=== PATIENT | female | born 1945 | race Caucasian/White ===

== ENCOUNTER 2019-12-08 22:36 | Inpatient (IN) ==
[2019-12-08] MEDS ORDERED: *HR* OxyCODONE Immed Rel 5 MG TABLET PO STA (22:55)
[2019-12-09 01:46] LABS: Basophils % 0.3 %; Eosinophils # 0.2 K/mcL (0.0-0.6); Eosinophils % 1.2 %; Hematocrit 39.7 % (35.3-44.9); Hemoglobin 13.2 g/dL (11.5-15.4); Immature Granulocytes % 0.5 % (0-4); Lymphocytes # 3.7 K/mcL (0.6-4.6); Lymphocytes % 23.8 %; Mean Corpuscular HGB Conc 33.2 g/dL (31.6-35.5); Mean Corpuscular Hemoglobin 30.1 pg (28.0-33.3); Mean Corpuscular Volume 90.4 fL (83.0-100.0); Mean Platelet Volume 10.4 fL (9.4-12.4); Monocytes % 6.3 %; Neutrophils # 10.4 K/mcL (1.6-8.9); Platelet Count 249 K/mcL (140-400); Red Blood Count 4.39 M/mcL (3.82-4.97); Red Cell Distribution Width 12.9 % (11.5-14.5); Segmented Neutrophils % 67.9 %; White Blood Count 15.4 K/mcL (4.3-11.1)
[2019-12-09 01:56] LABS: Prothrombin Time 11.4 Seconds (9.4-12.1)
[2019-12-09 01:59] LABS: Activated Partial Thrombo Time 27.7 Seconds (26.0-36.0)
[2019-12-09 02:01] LABS: Alanine Aminotransferase 19 Units/L (7-52); Albumin 4.3 g/dL (3.5-5.7); Albumin/Globulin Ratio 1.7 (1.1-2.2); Alkaline Phosphatase 65 Units/L (34-104); Aspartate Amino Transferase 21 Units/L (13-39); BUN/Creatinine Ratio 23 (6-26); Bilirubin,Direct 0.1 mg/dL (0.0-0.2); Bilirubin,Indirect 0.3 mg/dL (0.0-1.0); Bilirubin,Total 0.4 mg/dL (0.3-1.0); Blood Urea Nitrogen 19 mg/dL (8-23); Carbon Dioxide 22 mEq/L (23-29); Chloride 104 mEq/L (98-107); Globulin 2.6 g/dL (2.4-3.5); Glucose 142 mg/dL (70-105); Osmolality,Calculated 291 (280-300); Potassium 3.8 mEq/L (3.5-5.1); Sodium 138 mEq/L (136-145); Total Protein 6.9 g/dL (6.4-8.9); eGFR For African Americans > 60 (> 60); eGFR For Non-African Americans > 60 (> 60)
[2019-12-09] MEDS ORDERED: Naloxone 0.4 MG/ML INJ IVP PRN (02:44)
[2019-12-09] MEDS ORDERED: Ondansetron 4 MG/2 ML VIAL IVP PRN (02:44)
[2019-12-09] MEDS ORDERED: Acetaminophen 325 MG TABLET PO PRN (02:44)
[2019-12-09] MEDS ORDERED: 0.9 % Sodium Chloride 1,000 ML IVC SCH (02:45)
[2019-12-09 03:20] LABS: Troponin I < 0.03 ng/mL (< 0.04)
[2019-12-09 03:24] LABS: Adenovirus Not Detected (Not Detect); Bordetella Pertussis Not Detected (Not Detect); Chlamydophila pneumoniae Not Detected (Not Detect); Coronavirus 229E Not Detected (Not Detect); Coronavirus HKU1 Not Detected (Not Detect); Coronavirus NL63 Not Detected (Not Detect); Coronavirus OC43 Not Detected (Not Detect); Human Metapneumovirus Not Detected (Not Detect); Human Rhinovirus/Enterovirus Not Detected (Not Detect); Influenza A Subtype 2009 H1 Not Detected (Not Detect); Influenza B Not Detected (Not Detect); Mycoplasma pneumoniae Not Detected (Not Detect); Parainfluenza Virus 1 Not Detected (Not Detect); Parainfluenza Virus 2 Not Detected (Not Detect); Parainfluenza Virus 3 Not Detected (Not Detect); Parainfluenza Virus 4 Not Detected (Not Detect); Respiratory Syncytial Virus Not Detected (Not Detect); SARS-CoV-2 Not Detected (Not Detect)
[2019-12-09] MEDS ORDERED: Nitroglycerin 0.4 MG TAB.SUBL SL PRN (03:34)
[2019-12-09 03:55] LABS: Bilirubin,Urine Negative (Negative); Blood,Urine Negative (Negative); Clarity,Urine Clear (Clear); Color,Urine Colorless (Yellow); Glucose,Urine (UA) Normal (Normal); Ketones,Urine Negative (Negative); Leukocyte Esterase,Urine Trace (Negative); Mucus,Urine Few per lpf (None-Few); Nitrite,Urine Negative (Negative); Protein,Urine Negative (Neg-Trace); RBC,Urine 0-3 per hpf (0-3); Specific Gravity,Urine 1.014 (1.010-1.025); Squamous Epithelial Cell,Urine Few per hpf (None-Few); Urobilinogen,Urine Normal (Normal)
[2019-12-09] MEDS: *HR* Heparin 5,000 UNIT/ML VIAL SQ SCH ×2 (06:21→18:39)
[2019-12-09 06:25] LABS: Hematocrit 35.8 % (35.3-44.9); Hemoglobin 12.2 g/dL (11.5-15.4); Mean Corpuscular HGB Conc 34.1 g/dL (31.6-35.5); Mean Corpuscular Hemoglobin 31.3 pg (28.0-33.3); Mean Corpuscular Volume 91.8 fL (83.0-100.0); Mean Platelet Volume 9.7 fL (9.4-12.4); Platelet Count 199 K/mcL (140-400); Red Cell Distribution Width 12.9 % (11.5-14.5); White Blood Count 8.7 K/mcL (4.3-11.1)
[2019-12-09 06:43] LABS: Magnesium 1.8 mg/dL (1.6-2.6); Phosphorous 3.4 mg/dL (2.7-4.5)
[2019-12-09] MEDS: amLODIPine 5 MG TABLET PO SCH (07:44)
[2019-12-09] MEDS: Isosorbide MONOnitrate (24 HR) 30 MG TAB.ER.24H PO SCH (15:00)
[2019-12-09] MEDS: Aspirin 81 MG TAB.CHEW PO SCH (18:38)
[2019-12-10] MEDS: *HR* Heparin 5,000 UNIT/ML VIAL SQ SCH (06:02)
[2019-12-10 10:38] LABS: Basophils % 0.5 %; Eosinophils # 0.5 K/mcL (0.0-0.6); Eosinophils % 5.6 %; Hematocrit 34.4 % (35.3-44.9); Hemoglobin 11.5 g/dL (11.5-15.4); Immature Granulocytes % 0.2 % (0-4); Lymphocytes # 3.4 K/mcL (0.6-4.6); Lymphocytes % 42.3 %; Mean Corpuscular HGB Conc 33.4 g/dL (31.6-35.5); Mean Corpuscular Hemoglobin 31.4 pg (28.0-33.3); Mean Platelet Volume 10.1 fL (9.4-12.4); Monocytes # 0.6 K/mcL (0.0-1.3); Monocytes % 7.9 %; Neutrophils # 3.5 K/mcL (1.6-8.9); Platelet Count 201 K/mcL (140-400); Red Blood Count 3.66 M/mcL (3.82-4.97); Red Cell Distribution Width 12.8 % (11.5-14.5); Segmented Neutrophils % 43.5 %
[2019-12-10] MEDS: amLODIPine 5 MG TABLET PO SCH (10:53)
[2019-12-10] MEDS: Aspirin 81 MG TAB.CHEW PO SCH (10:53)
[2019-12-10] MEDS: Isosorbide MONOnitrate (24 HR) 30 MG TAB.ER.24H PO SCH (10:53)
[2019-12-10 10:59] LABS: BUN/Creatinine Ratio 25 (6-26); Blood Urea Nitrogen 18 mg/dL (8-23); Carbon Dioxide 25 mEq/L (23-29); Chloride 104 mEq/L (98-107); Glucose 132 mg/dL (70-105); Osmolality,Calculated 288 (280-300); Potassium 3.6 mEq/L (3.5-5.1); Sodium 137 mEq/L (136-145); eGFR For African Americans > 60 (> 60); eGFR For Non-African Americans > 60 (> 60)
[2019-12-10 16:29] VITALS: BP 116/60
== END 2019-12-10 18:17 | disposition home or self-care (01) | DRG 552 ==
LOC: 3NENU 22:36 → EMEROOARM 22:36 → 3NENU 12-09 04:38
PROVIDERS: ADMIT Family Medicine; ATTEND Family Medicine

== ENCOUNTER 2020-01-05 06:40 | Inpatient (IN) ==
[~2020-01-05 06:40] MED LIST: Dextrose 50 % in Water (Vial) 30 ML, Sodium Bicarbonate 20 MEQ, Lidocaine 1% 5 ML, Insu... TH ONE; Dextrose 50 % in Water (Vial) 30 ML, Sodium Bicarbonate 20 MEQ, Potassium Chloride 15 M... TH ONE; Heparin 15,000 UNIT in 0.9 % Sodium Chloride 500 ML IV ONE; Insulin Human Regular 100 UNIT in 0.9 % Sodium Chloride 100 ML IV PRN; Norepinephrine 4 MG in 0.9 % Sodium Chloride 250 ML IVC PRN
[2020-01-05] MEDS ORDERED: CeFAZolin Syr 2,000MG/20 ML 2,000 MG/20 ML SYRINGE IVPB ONE (06:56)
[2020-01-05] MEDS ORDERED: Aspirin 81 MG TAB.CHEW PO STA (06:56)
[2020-01-05] MEDS ORDERED: *HR* FentaNYL (PF) 1,000 MCG/20 ML VIAL ONE (06:57)
[2020-01-05] MEDS ORDERED: *HR* Propofol 200 MG/20 ML VIAL IVP ONE (06:57)
[2020-01-05] MEDS ORDERED: *HR* Midazolam HCl 5 MG/5 ML VIAL IVP ONE (06:57)
[2020-01-05] MEDS ORDERED: *HR* PHENYLEPHRINE 1,000 MCG/10 ML SYRINGE IVP ONE (07:00)
[2020-01-05] MEDS ORDERED: Dexamethasone 4 MG/ML VIAL ONE (07:00)
[2020-01-05] MEDS ORDERED: *HR* Rocuronium Bromide 50 MG/5 ML VIAL ONE ×2 (07:00→09:44)
[2020-01-05] MEDS ORDERED: Tranexamic Acid 1,000 MG/10 ML VIAL ONE (07:01)
[2020-01-05] MEDS ORDERED: *HR* Magnesium Sulfate 1 GM/2 ML VIAL ONE (07:01)
[2020-01-05] MEDS ORDERED: Famotidine 20 MG/2 ML VIAL ONE (07:01)
[2020-01-05] MEDS ORDERED: Lidocaine 2% Syringe 100 MG/5 ML ONE (07:14)
[2020-01-05] MEDS: Chlorhexidine Rinse 15 ML MOUTHWASH MM SCH ×2 (07:40→19:32)
[2020-01-05] MEDS ORDERED: Papaverine 60 MG/2 ML VIAL IVP ONE (07:57)
[2020-01-05 08:33] LABS: ABG Base Excess -1 mEq/L (-2 to 3); ABG Chloride 108 mEq/L (98-107); ABG Glucose 92 mg/dL (60-95); ABG HCO3 25 mEq/L (21-27); ABG Ionized Calcium 1.19 mmol/L (1.15-1.35); ABG Oxygen Saturation 100 % (95-98); ABG PCO2 48 mmHg (35-45); ABG PH 7.33 pH Units (7.32-7.45); ABG PO2 452 mmHg (85-104); ABG TCO2 27 mEq/L (20-26)
[2020-01-05 09:49] LABS: ABG Base Excess -2 mEq/L (-2 to 3); ABG Chloride 108 mEq/L (98-107); ABG Glucose 109 mg/dL (60-95); ABG HCO3 24 mEq/L (21-27); ABG Ionized Calcium 1.14 mmol/L (1.15-1.35); ABG Oxygen Saturation 100 % (95-98); ABG PCO2 40 mmHg (35-45); ABG PH 7.38 pH Units (7.32-7.45); ABG PO2 197 mmHg (85-104); ABG TCO2 25 mEq/L (20-26)
[2020-01-05] MEDS ORDERED: Protamine Sulfate 250 MG/25 ML VIAL IVP ONE (09:54)
[2020-01-05 10:27] LABS: ABG Base Excess -2 mEq/L (-2 to 3); ABG Chloride 101 mEq/L (98-107); ABG Glucose 205 mg/dL (60-95); ABG HCO3 22 mEq/L (21-27); ABG Ionized Calcium 0.89 mmol/L (1.15-1.35); ABG PCO2 34 mmHg (35-45); ABG PH 7.43 pH Units (7.32-7.45); ABG PO2 > 630 mmHg (85-104); ABG TCO2 23 mEq/L (20-26)
[2020-01-05 10:54] LABS: ABG Base Excess 0 mEq/L (-2 to 3); ABG Chloride 101 mEq/L (98-107); ABG Glucose 212 mg/dL (60-95); ABG HCO3 24 mEq/L (21-27); ABG Ionized Calcium 0.96 mmol/L (1.15-1.35); ABG Oxygen Saturation 100 % (95-98); ABG PCO2 34 mmHg (35-45); ABG PH 7.46 pH Units (7.32-7.45); ABG PO2 630 mmHg (85-104); ABG TCO2 25 mEq/L (20-26)
[2020-01-05] MEDS ORDERED: Protamine Sulfate 50 MG/5 ML VIAL IVP ONE (12:03)
[2020-01-05 12:05] LABS: ABG Base Excess -1 mEq/L (-2 to 3); ABG Chloride 103 mEq/L (98-107); ABG Glucose 177 mg/dL (60-95); ABG HCO3 24 mEq/L (21-27); ABG Ionized Calcium 0.96 mmol/L (1.15-1.35); ABG Oxygen Saturation 100 % (95-98); ABG PCO2 39 mmHg (35-45); ABG PO2 592 mmHg (85-104); ABG TCO2 25 mEq/L (20-26)
[2020-01-05 12:05] LABS: ABG Base Excess -2 mEq/L (-2 to 3); ABG Chloride 104 mEq/L (98-107); ABG Glucose 136 mg/dL (60-95); ABG HCO3 24 mEq/L (21-27); ABG Ionized Calcium 1.23 mmol/L (1.15-1.35); ABG Oxygen Saturation 100 % (95-98); ABG PCO2 42 mmHg (35-45); ABG PH 7.36 pH Units (7.32-7.45); ABG PO2 566 mmHg (85-104); ABG TCO2 25 mEq/L (20-26)
[2020-01-05 12:06] LABS: ABG Base Excess -4 mEq/L (-2 to 3); ABG Chloride 112 mEq/L (98-107); ABG Glucose 104 mg/dL (60-95); ABG HCO3 22 mEq/L (21-27); ABG Ionized Calcium 1.42 mmol/L (1.15-1.35); ABG Oxygen Saturation 99 % (95-98); ABG PCO2 40 mmHg (35-45); ABG PH 7.35 pH Units (7.32-7.45); ABG PO2 148 mmHg (85-104); ABG TCO2 23 mEq/L (20-26)
[2020-01-05 12:23] LABS: ABG Base Excess -3 mEq/L (-2 to 3); ABG Chloride 113 mEq/L (98-107); ABG Glucose 94 mg/dL (60-95); ABG HCO3 22 mEq/L (21-27); ABG Ionized Calcium 1.33 mmol/L (1.15-1.35); ABG Oxygen Saturation 100 % (95-98); ABG PCO2 38 mmHg (35-45); ABG PH 7.38 pH Units (7.32-7.45); ABG PO2 198 mmHg (85-104); ABG TCO2 23 mEq/L (20-26)
[2020-01-05] MEDS ORDERED: Insulin Regular, Human 100 UNIT/ML IV PRN (12:47)
[2020-01-05] MEDS ORDERED: Potassium Chloride 40 MEQ/200 ML BAG IVPB PRN (12:47)
[2020-01-05] MEDS ORDERED: *HR* Dextrose 50 % in Water (Vial) 50 ML VIAL IVP PRN (12:47)
[2020-01-05 13:31] LABS: ABG Base Excess -2 mEq/L (-2 to 3); ABG HCO3 21 mEq/L (21-27); ABG Oxygen Saturation 100 % (95-98); ABG PCO2 31 mmHg (35-45); ABG PH 7.45 pH Units (7.32-7.45); ABG PO2 160 mmHg (85-104); ABG TCO2 22 mEq/L (20-26); Blood Gas Modality ASSIST CONTROL; Blood Gas VT 500 cc
[2020-01-05 13:37] LABS: Basophils % 0.3 %; Eosinophils % 0.5 %; Hematocrit 30.1 % (35.3-44.9); Immature Granulocytes % 0.5 % (0-4); Lymphocytes # 1.6 K/mcL (0.6-4.6); Lymphocytes % 20.5 %; Mean Corpuscular HGB Conc 33.2 g/dL (31.6-35.5); Mean Corpuscular Hemoglobin 30.2 pg (28.0-33.3); Mean Corpuscular Volume 90.9 fL (83.0-100.0); Mean Platelet Volume 9.7 fL (9.4-12.4); Monocytes # 0.5 K/mcL (0.0-1.3); Monocytes % 6.7 %; Neutrophils # 5.7 K/mcL (1.6-8.9); Platelet Count 113 K/mcL (140-400); Red Blood Count 3.31 M/mcL (3.82-4.97); Red Cell Distribution Width 13.2 % (11.5-14.5); Segmented Neutrophils % 71.5 %
[2020-01-05 13:57] LABS: INR 1.2; Prothrombin Time 13.7 Seconds (9.4-12.1)
[2020-01-05 13:58] LABS: Activated Partial Thrombo Time 27.8 Seconds (26.0-36.0)
[2020-01-05 14:08] LABS: BUN/Creatinine Ratio 20 (6-26); Blood Urea Nitrogen 12 mg/dL (8-23); Calcium 8.7 mg/dL (8.6-10.3); Carbon Dioxide 23 mEq/L (23-29); Chloride 112 mEq/L (98-107); Glucose 122 mg/dL (70-105); Osmolality,Calculated 297 (280-300); Potassium 4.1 mEq/L (3.5-5.1); Sodium 143 mEq/L (136-145); eGFR For African Americans > 60 (> 60); eGFR For Non-African Americans > 60 (> 60)
[2020-01-05] MEDS: Insulin Human Regular 100 UNIT in 0.9 % Sodium Chloride 100 ML IVC SCH (14:15)
[2020-01-05] MEDS: *HR* OxyCODONE/APAP 5/325 TABLET PO PRN ×3 (14:34→23:14)
[2020-01-05] MEDS: *HR* FentaNYL (PF) 100 MCG/2 ML VIAL IVP PRN ×5 (14:34→23:14)
[2020-01-05] MEDS: 0.9 % Sodium Chloride 1,000 ML IVC SCH (14:36)
[2020-01-05] MEDS: Albumin Human 5% 12.5 GM/250 ML IV.SOLN IVPB PRN ×2 (14:38→16:00)
[2020-01-05] MEDS ORDERED: Albumin Human 25% 25 GM/100 ML IV.SOLN IVPB ONE (14:56)
[2020-01-05] MEDS ORDERED: *HR* Magnesium Sulfate 2 GM/50 ML PIGGYBACK IVPB ONE (14:56)
[2020-01-05] MEDS ORDERED: *HR* Heparin 10,000 UNIT/10 ML VIAL IR ONE (14:56)
[2020-01-05] MEDS ORDERED: Lidocaine 2% Syringe 100 MG/5 ML IVP ONE (14:56)
[2020-01-05] MEDS ORDERED: Mannitol 25% vial 12.5 GM/50 ML VIAL IVPB ONE (14:56)
[2020-01-05] MEDS ORDERED: *HR* Phenylephrine 10 MG/ML VIAL IVC ONE (14:56)
[2020-01-05] MEDS: CeFAZolin 2 GM/120 ML BAG IVPB SCH (15:15)
[2020-01-05 16:33] LABS: ABG Base Excess -2 mEq/L (-2 to 3); ABG HCO3 25 mEq/L (21-27); ABG Oxygen Saturation 94 % (95-98); ABG PCO2 47 mmHg (35-45); ABG PH 7.33 pH Units (7.32-7.45); ABG PO2 78 mmHg (85-104); ABG TCO2 26 mEq/L (20-26); Blood Gas Modality ASSIST CONTROL; Blood Gas Pressure Support 10 cm H2O
[2020-01-05 18:23] LABS: ABG Base Excess -2 mEq/L (-2 to 3); ABG HCO3 25 mEq/L (21-27); ABG Oxygen Saturation 91 % (95-98); ABG PCO2 54 mmHg (35-45); ABG PH 7.28 pH Units (7.32-7.45); ABG PO2 71 mmHg (85-104); ABG TCO2 27 mEq/L (20-26)
[2020-01-05] MEDS: niCARdipine 20 MG/200 ML MLS IVC SCH ×3 (19:31→20:05)
[2020-01-05] MEDS: Norepinephrine 4 MG/254 ML IV.SOLN IVC SCH (19:32)
[2020-01-05 20:49] LABS: ABG Base Excess -1 mEq/L (-2 to 3); ABG HCO3 26 mEq/L (21-27); ABG Oxygen Saturation 93 % (95-98); ABG PCO2 52 mmHg (35-45); ABG PO2 74 mmHg (85-104); ABG TCO2 27 mEq/L (20-26)
[2020-01-05] MEDS ORDERED: Ondansetron 4 MG/2 ML VIAL ONE (21:19)
[2020-01-06] MEDS: CeFAZolin 2 GM/120 ML BAG IVPB SCH (00:36)
[2020-01-06] MEDS: *HR* FentaNYL (PF) 100 MCG/2 ML VIAL IVP PRN ×10 (01:08→12:22)
[2020-01-06] MEDS: *HR* OxyCODONE/APAP 5/325 TABLET PO PRN ×4 (03:19→16:23)
[2020-01-06] MEDS: 0.9 % Sodium Chloride 1,000 ML IVC SCH ×2 (03:24→18:37)
[2020-01-06] MEDS: niCARdipine 20 MG/200 ML MLS IVC SCH ×5 (04:17→22:23)
[2020-01-06 04:31] LABS: Hemoglobin 9.6 g/dL (11.5-15.4); Immature Granulocytes % 0.3 % (0-4); Lymphocytes # 2.8 K/mcL (0.6-4.6); Lymphocytes % 25.6 %; Mean Corpuscular HGB Conc 33.1 g/dL (31.6-35.5); Mean Corpuscular Hemoglobin 31.2 pg (28.0-33.3); Mean Corpuscular Volume 94.2 fL (83.0-100.0); Monocytes # 0.8 K/mcL (0.0-1.3); Monocytes % 7.1 %; Neutrophils # 7.5 K/mcL (1.6-8.9); Platelet Count 132 K/mcL (140-400); Red Blood Count 3.08 M/mcL (3.82-4.97); Red Cell Distribution Width 13.8 % (11.5-14.5); White Blood Count 11.1 K/mcL (4.3-11.1)
[2020-01-06 04:48] LABS: BUN/Creatinine Ratio 25 (6-26); Blood Urea Nitrogen 14 mg/dL (8-23); Carbon Dioxide 22 mEq/L (23-29); Chloride 109 mEq/L (98-107); Glucose 109 mg/dL (70-105); Osmolality,Calculated 289 (280-300); Sodium 139 mEq/L (136-145); eGFR For African Americans > 60 (> 60); eGFR For Non-African Americans > 60 (> 60)
[2020-01-06] MEDS: Chlorhexidine Rinse 15 ML MOUTHWASH MM SCH ×2 (08:09→20:19)
[2020-01-06] MEDS: Pantoprazole 40 MG VIAL IVP SCH (08:10)
[2020-01-06] MEDS: Ketorolac 15 MG/ML VIAL IVP SCH ×3 (11:44→23:10)
[2020-01-06] MEDS: Acetaminophen 325 MG TABLET PO PRN ×2 (13:23→20:18)
[2020-01-06] MEDS: Insulin Human Regular 100 UNIT in 0.9 % Sodium Chloride 100 ML IVC SCH (18:36)
[2020-01-06] MEDS: Norepinephrine 4 MG/254 ML IV.SOLN IVC SCH (18:36)
[2020-01-07] MEDS: *HR* OxyCODONE/APAP 5/325 TABLET PO PRN ×6 (00:28→20:11)
[2020-01-07] MEDS: 0.9 % Sodium Chloride 1,000 ML IVC SCH ×2 (04:08→18:45)
[2020-01-07] MEDS: niCARdipine 20 MG/200 ML MLS IVC SCH ×5 (04:09→21:56)
[2020-01-07] MEDS: Acetaminophen 325 MG TABLET PO PRN ×2 (04:37→23:19)
[2020-01-07 05:10] LABS: BUN/Creatinine Ratio 25 (6-26); Blood Urea Nitrogen 15 mg/dL (8-23); Calcium 8.1 mg/dL (8.6-10.3); Carbon Dioxide 23 mEq/L (23-29); Chloride 105 mEq/L (98-107); Glucose 139 mg/dL (70-105); Osmolality,Calculated 285 (280-300); Potassium 3.9 mEq/L (3.5-5.1); Sodium 136 mEq/L (136-145); eGFR For African Americans > 60 (> 60); eGFR For Non-African Americans > 60 (> 60)
[2020-01-07] MEDS: Ketorolac 15 MG/ML VIAL IVP SCH (05:55)
[2020-01-07 06:22] LABS: Basophils % 0.1 %; Hematocrit 26.6 % (35.3-44.9); Hemoglobin 8.7 g/dL (11.5-15.4); Immature Granulocytes % 0.3 % (0-4); Lymphocytes # 2.6 K/mcL (0.6-4.6); Lymphocytes % 29.1 %; Mean Corpuscular HGB Conc 32.7 g/dL (31.6-35.5); Mean Corpuscular Hemoglobin 31.1 pg (28.0-33.3); Mean Platelet Volume 10.6 fL (9.4-12.4); Monocytes # 0.6 K/mcL (0.0-1.3); Monocytes % 6.1 %; Neutrophils # 5.8 K/mcL (1.6-8.9); Platelet Count 120 K/mcL (140-400); Segmented Neutrophils % 64.4 %
[2020-01-07] MEDS: Chlorhexidine Rinse 15 ML MOUTHWASH MM SCH ×2 (08:29→20:11)
[2020-01-07] MEDS: Pantoprazole 40 MG VIAL IVP SCH (08:30)
[2020-01-07] MEDS ORDERED: *HR* FentaNYL (PF) 100 MCG/2 ML VIAL IVP ONE ×2 (09:06→11:34)
[2020-01-07] MEDS: Bumetanide 1 MG TABLET PO SCH (12:51)
[2020-01-07] MEDS: Insulin Human Regular 100 UNIT in 0.9 % Sodium Chloride 100 ML IVC SCH (13:02)
[2020-01-07] MEDS: Norepinephrine 4 MG/254 ML IV.SOLN IVC SCH (13:02)
[2020-01-07] MEDS: *HR* Heparin 5,000 UNIT/ML VIAL SQ SCH (18:45)
[2020-01-08] MEDS: niCARdipine 20 MG/200 ML MLS IVC SCH ×3 (00:40→09:40)
[2020-01-08] MEDS: *HR* OxyCODONE/APAP 5/325 TABLET PO PRN ×6 (01:07→22:11)
[2020-01-08 04:21] LABS: Eosinophils % 0.2 %; Hematocrit 25.5 % (35.3-44.9); Hemoglobin 8.3 g/dL (11.5-15.4); Immature Granulocytes % 0.5 % (0-4); Lymphocytes # 1.7 K/mcL (0.6-4.6); Lymphocytes % 28.3 %; Mean Corpuscular HGB Conc 32.5 g/dL (31.6-35.5); Mean Corpuscular Hemoglobin 30.5 pg (28.0-33.3); Mean Corpuscular Volume 93.8 fL (83.0-100.0); Mean Platelet Volume 10.1 fL (9.4-12.4); Monocytes # 0.3 K/mcL (0.0-1.3); Monocytes % 5.4 %; Neutrophils # 3.9 K/mcL (1.6-8.9); Nucleated Red Blood Cells 0.7 /100 WBC (0); Platelet Count 131 K/mcL (140-400); Red Blood Count 2.72 M/mcL (3.82-4.97); Segmented Neutrophils % 65.6 %; White Blood Count 5.9 K/mcL (4.3-11.1)
[2020-01-08] MEDS: *HR* Heparin 5,000 UNIT/ML VIAL SQ SCH ×2 (05:29→17:56)
[2020-01-08 05:46] LABS: BUN/Creatinine Ratio 24 (6-26); Blood Urea Nitrogen 13 mg/dL (8-23); Calcium 8.2 mg/dL (8.6-10.3); Carbon Dioxide 25 mEq/L (23-29); Chloride 105 mEq/L (98-107); Glucose 122 mg/dL (70-105); Osmolality,Calculated 285 (280-300); Potassium 3.6 mEq/L (3.5-5.1); Sodium 137 mEq/L (136-145); eGFR For African Americans > 60 (> 60); eGFR For Non-African Americans > 60 (> 60)
[2020-01-08] MEDS: Chlorhexidine Rinse 15 ML MOUTHWASH MM SCH ×2 (08:22→20:05)
[2020-01-08] MEDS: Bumetanide 1 MG TABLET PO SCH (08:22)
[2020-01-08] MEDS: Pantoprazole 40 MG VIAL IVP SCH (08:22)
[2020-01-08] MEDS: 0.9 % Sodium Chloride 1,000 ML IVC SCH (09:39)
[2020-01-08] MEDS: Norepinephrine 4 MG/254 ML IV.SOLN IVC SCH (09:40)
[2020-01-08] MEDS: Insulin Human Regular 100 UNIT in 0.9 % Sodium Chloride 100 ML IVC SCH (09:40)
[2020-01-08] MEDS ORDERED: NON-FORMULARY MEDICATION 1 EACH EACH (Potassium Chloride [K-Tab Er] 20 MEQ) PO SCH (12:09)
[2020-01-08] MEDS ORDERED: Acetaminophen 325 MG TABLET PO PRN (12:09)
[2020-01-08] MEDS ORDERED: *HR* Dextrose 50 % in Water (Vial) 50 ML VIAL IVP PRN (12:09)
[2020-01-09] MEDS: *HR* OxyCODONE/APAP 5/325 TABLET PO PRN ×5 (02:52→20:40)
[2020-01-09] MEDS: *HR* Heparin 5,000 UNIT/ML VIAL SQ SCH ×2 (06:24→17:12)
[2020-01-09] MEDS: Bumetanide 1 MG TABLET PO SCH (07:35)
[2020-01-09] MEDS: Chlorhexidine Rinse 15 ML MOUTHWASH MM SCH ×2 (07:36→20:41)
[2020-01-09] MEDS ORDERED: Pantoprazole 40 MG VIAL IVP SCH (09:00)
[2020-01-10] MEDS: *HR* OxyCODONE/APAP 5/325 TABLET PO PRN ×6 (00:35→21:38)
[2020-01-10] MEDS: *HR* Heparin 5,000 UNIT/ML VIAL SQ SCH ×2 (05:46→17:21)
[2020-01-10] MEDS: Bumetanide 1 MG TABLET PO SCH (09:40)
[2020-01-10] MEDS: Chlorhexidine Rinse 15 ML MOUTHWASH MM SCH ×2 (09:41→20:57)
[2020-01-10] MEDS ORDERED: Prochlorperazine 10 MG/2 ML VIAL IVP PRN (09:47)
[2020-01-11] MEDS: *HR* Heparin 5,000 UNIT/ML VIAL SQ SCH (05:41)
[2020-01-11 07:51] VITALS: BP 129/71
[2020-01-11] MEDS: Chlorhexidine Rinse 15 ML MOUTHWASH MM SCH (09:17)
[2020-01-11] MEDS: *HR* OxyCODONE/APAP 5/325 TABLET PO PRN (09:17)
[2020-01-11] MEDS: Bumetanide 1 MG TABLET PO SCH (09:17)
== END 2020-01-11 12:03 | disposition home or self-care (01) | DRG 235 ==
LOC: SAMDAY 06:40 → ICNU 12:32 → 2NNU 01-10 23:07
PROVIDERS: ADMIT Thoracic Surgery (Cardiothoracic Vascular Surgery); ATTEND Thoracic Surgery (Cardiothoracic Vascular Surgery)

== ENCOUNTER 2020-02-25 12:18 | Inpatient (IN) ==
[2020-02-25] MEDS ORDERED: Naloxone 0.4 MG/ML INJ IVP PRN (15:47)
[2020-02-25] MEDS ORDERED: Acetaminophen 325 MG TABLET PO PRN (15:47)
[2020-02-25] MEDS ORDERED: *HR* OxyCODONE Immed Rel 5 MG TABLET PO PRN (15:47)
[2020-02-25] MEDS ORDERED: Prochlorperazine 10 MG/2 ML VIAL IVP PRN (15:51)
[2020-02-25] MEDS ORDERED: Vancomycin 1,500 MG/265 ML IV.SOLN IVPB ONE (16:05)
[2020-02-25] MEDS: Piperacillin/Tazobactam 3.375 GM in 0.9 % Sodium Chloride Mini Bag 100 ML IVPB SCH (16:23)
[2020-02-25] MEDS: Bumetanide 1 MG TABLET PO SCH (20:42)
[2020-02-25] MEDS ORDERED: *HR* Heparin 5,000 UNIT/ML VIAL SQ ONE (22:00)
[2020-02-26] MEDS: Piperacillin/Tazobactam 3.375 GM in 0.9 % Sodium Chloride Mini Bag 100 ML IVPB SCH ×4 (01:09→23:27)
[2020-02-26 02:36] LABS: Hematocrit 31.4 % (35.3-44.9); Hemoglobin 9.9 g/dL (11.5-15.4); Mean Corpuscular HGB Conc 31.5 g/dL (31.6-35.5); Mean Corpuscular Hemoglobin 27.9 pg (28.0-33.3); Mean Corpuscular Volume 88.5 fL (83.0-100.0); Mean Platelet Volume 9.4 fL (9.4-12.4); Platelet Count 303 K/mcL (140-400); Red Blood Count 3.55 M/mcL (3.82-4.97); Red Cell Distribution Width 13.8 % (11.5-14.5); White Blood Count 10.4 K/mcL (4.3-11.1)
[2020-02-26 02:38] LABS: INR 1.3; Prothrombin Time 14.4 Seconds (9.4-12.1)
[2020-02-26 02:42] LABS: Activated Partial Thrombo Time 25.8 Seconds (26.0-36.0)
[2020-02-26 02:50] LABS: BUN/Creatinine Ratio 20 (6-26); Blood Urea Nitrogen 11 mg/dL (8-23); Calcium 8.1 mg/dL (8.6-10.3); Carbon Dioxide 23 mEq/L (23-29); Chloride 105 mEq/L (98-107); Chol/HDL Ratio 4.5 (0-4.9); Cholesterol 148 mg/dL (< 200); Glucose 106 mg/dL (70-105); HDL Cholesterol 33 mg/dL (40-59); LDL Cholesterol,Calculated 86 mg/dL (< 100); Magnesium 1.7 mg/dL (1.6-2.6); Osmolality,Calculated 282 (280-300); Phosphorous 3.4 mg/dL (2.7-4.5); Potassium 3.3 mEq/L (3.5-5.1); Sodium 136 mEq/L (136-145); Triglycerides 146 mg/dL (< 150); eGFR For African Americans > 60 (> 60); eGFR For Non-African Americans > 60 (> 60)
[2020-02-26] MEDS: Bumetanide 1 MG TABLET PO SCH ×2 (09:09→20:36)
[2020-02-26] MEDS ORDERED: *HR* OxyCODONE Immed Rel 5 MG TABLET PO PRN ×2 (09:13→13:10)
[2020-02-26] MEDS ORDERED: *HR* HYDROmorphone PF 0.5 MG/0.5 ML SYRINGE IVP PRN (09:13)
[2020-02-26] MEDS ORDERED: Ondansetron 4 MG/2 ML VIAL IVP PRN (09:13)
[2020-02-26] MEDS ORDERED: Lidocaine -MPF 2% 2 ML VIAL ONE (10:17)
[2020-02-26] MEDS ORDERED: *HR* FentaNYL (PF) 100 MCG/2 ML VIAL ONE (10:17)
[2020-02-26] MEDS ORDERED: *HR* Propofol 200 MG/20 ML VIAL IVP ONE (10:20)
[2020-02-26] MEDS ORDERED: Dexamethasone 4 MG/ML VIAL ONE (10:21)
[2020-02-26] MEDS ORDERED: Ondansetron 4 MG/2 ML VIAL ONE (10:21)
[2020-02-26] MEDS ORDERED: Famotidine 20 MG/2 ML VIAL ONE (10:28)
[2020-02-26] MEDS ORDERED: Acetaminophen IV 1,000 MG/100 ML INFUS..BTL ONE (10:28)
[2020-02-26] MEDS ORDERED: *HR* OxyCODONE/APAP 5/325 TABLET PO PRN ×2 (11:53→13:10)
[2020-02-26] MEDS ORDERED: Nitroglycerin 0.4 MG TAB.SUBL SL PRN ×2 (11:53→13:10)
[2020-02-26] MEDS ORDERED: Acetaminophen 325 MG TABLET PO PRN (13:10)
[2020-02-26] MEDS ORDERED: Prochlorperazine 10 MG/2 ML VIAL IVP PRN (13:10)
[2020-02-26] MEDS ORDERED: Naloxone 0.4 MG/ML INJ IVP PRN (13:10)
[2020-02-26] MEDS ORDERED: Fluconazole 100 MG TABLET PO STA (16:18)
[2020-02-27 00:56] LABS: Hematocrit 30.8 % (35.3-44.9); Hemoglobin 9.7 g/dL (11.5-15.4); Mean Corpuscular HGB Conc 31.5 g/dL (31.6-35.5); Mean Corpuscular Hemoglobin 28.2 pg (28.0-33.3); Mean Corpuscular Volume 89.5 fL (83.0-100.0); Platelet Count 307 K/mcL (140-400); Red Blood Count 3.44 M/mcL (3.82-4.97); Red Cell Distribution Width 13.5 % (11.5-14.5); White Blood Count 5.7 K/mcL (4.3-11.1)
[2020-02-27 01:11] LABS: BUN/Creatinine Ratio 22 (6-26); Blood Urea Nitrogen 15 mg/dL (8-23); Calcium 8.8 mg/dL (8.6-10.3); Carbon Dioxide 25 mEq/L (23-29); Chloride 105 mEq/L (98-107); Glucose 206 mg/dL (70-105); Osmolality,Calculated 289 (280-300); Potassium 3.7 mEq/L (3.5-5.1); Sodium 136 mEq/L (136-145); eGFR For African Americans > 60 (> 60); eGFR For Non-African Americans > 60 (> 60)
[2020-02-27] MEDS: Vancomycin 1,250 MG/262.5 ML IV.SOLN IVPB SCH ×2 (02:07→13:31)
[2020-02-27] MEDS: *HR* Enoxaparin 40 MG/0.4 ML SYRINGE SQ SCH (05:14)
[2020-02-27] MEDS: amLODIPine 5 MG TABLET PO SCH (08:35)
[2020-02-27] MEDS: Bumetanide 1 MG TABLET PO SCH ×2 (08:35→20:20)
[2020-02-27] MEDS: Piperacillin/Tazobactam 3.375 GM in 0.9 % Sodium Chloride Mini Bag 100 ML IVPB SCH (08:36)
[2020-02-27] MEDS ORDERED: NON-FORMULARY MEDICATION 1 EACH EACH (Pravastatin Sodium [Pravachol] 40 MG) PO SCH (09:00)
[2020-02-27] MEDS ORDERED: NON-FORMULARY MEDICATION 1 EACH EACH (Amlodipine Besylate 10 MG) PO SCH (09:00)
[2020-02-27] MEDS ORDERED: CITALOPRAM HYDROBROMIDE 20 MG PO SCH (09:00)
[2020-02-27] MEDS: Sulfamethoxazole/Trimeth DS 1 EACH TABLET PO SCH (20:19)
[2020-02-28] MEDS: *HR* Enoxaparin 40 MG/0.4 ML SYRINGE SQ SCH (05:00)
[2020-02-28] MEDS: amLODIPine 5 MG TABLET PO SCH (07:47)
[2020-02-28] MEDS: Bumetanide 1 MG TABLET PO SCH (07:47)
[2020-02-28] MEDS: Sulfamethoxazole/Trimeth DS 1 EACH TABLET PO SCH (07:47)
[2020-02-28 08:56] VITALS: BP 117/75
== END 2020-02-28 10:43 | disposition home or self-care (01) | DRG 863 ==
LOC: 2ANU → SUATTDRO 14:46
PROVIDERS: ADMIT Internal Medicine; ATTEND Student in an Organized Health Care Education/Training Program

== ENCOUNTER 2020-05-01 12:54 | Observation (INO) ==
[2020-05-01 13:41] LABS: Hematocrit 39.8 % (35.3-44.9); Hemoglobin 12.4 g/dL (11.5-15.4); Lymphocytes # 6.3 K/mcL (0.6-4.6); Mean Corpuscular HGB Conc 31.2 g/dL (31.6-35.5); Mean Corpuscular Hemoglobin 27.7 pg (28.0-33.3); Mean Corpuscular Volume 88.8 fL (83.0-100.0); Mean Platelet Volume 10.1 fL (9.4-12.4); Platelet Count 259 K/mcL (140-400); Red Blood Count 4.48 M/mcL (3.82-4.97); Red Cell Distribution Width 15.1 % (11.5-14.5); White Blood Count 9.3 K/mcL (4.3-11.1)
[2020-05-01 13:59] LABS: Eosinophils # 0.4 K/mcL (0.0-0.6); Monocytes # 0.7 K/mcL (0.0-1.3); Neutrophils # 1.9 K/mcL (1.6-8.9)
[2020-05-01 14:00] LABS: Prothrombin Time 11.9 Seconds (9.4-12.1)
[2020-05-01 14:01] LABS: Platelet Estimate Normal (Normal)
[2020-05-01 14:02] LABS: Activated Partial Thrombo Time 26.7 Seconds (26.0-36.0)
[2020-05-01 14:23] LABS: BUN/Creatinine Ratio 13 (6-26); Blood Urea Nitrogen 15 mg/dL (8-23); Calcium 9.7 mg/dL (8.6-10.3); Carbon Dioxide 24 mEq/L (23-29); Chloride 109 mEq/L (98-107); Glucose 93 mg/dL (70-105); Osmolality,Calculated 295 (280-300); Potassium 4.2 mEq/L (3.5-5.1); Sodium 142 mEq/L (136-145); Troponin I < 0.03 ng/mL (< 0.04); eGFR For African Americans 55 (> 60); eGFR For Non-African Americans 45 (> 60)
[2020-05-01] MEDS ORDERED: MOM Conc 10 ML UD.LIQ PO PRN (16:17)
[2020-05-01] MEDS ORDERED: Ondansetron ODT 4 MG TAB.RAPDIS SL PRN (16:17)
[2020-05-01] MEDS ORDERED: Naloxone 0.4 MG/ML INJ IVP PRN (16:17)
[2020-05-01] MEDS ORDERED: Mag Hydrox/Al Hydrox/Simeth 30 ML UDC PO PRN (16:17)
[2020-05-01] MEDS ORDERED: Perflutren Lipid Microsphere 1.3 ML in 0.9 % Sodium Chloride 8.7 ML IVP PRN (16:19)
[2020-05-01] MEDS ORDERED: Acetaminophen 325 MG TABLET PO PRN (16:21)
[2020-05-01] MEDS: Bumetanide 1 MG TABLET PO SCH (17:05)
[2020-05-02] MEDS ORDERED: *HR* Enoxaparin 40 MG/0.4 ML SYRINGE SQ SCH (06:00)
[2020-05-02 06:28] LABS: Hematocrit 39.6 % (35.3-44.9); Hemoglobin 12.7 g/dL (11.5-15.4); Mean Corpuscular HGB Conc 32.1 g/dL (31.6-35.5); Mean Corpuscular Hemoglobin 28.1 pg (28.0-33.3); Mean Corpuscular Volume 87.6 fL (83.0-100.0); Platelet Count 268 K/mcL (140-400); Red Blood Count 4.52 M/mcL (3.82-4.97); Red Cell Distribution Width 15.1 % (11.5-14.5); White Blood Count 7.6 K/mcL (4.3-11.1)
[2020-05-02 06:46] LABS: Alanine Aminotransferase 20 Units/L (7-52); Albumin 4.1 g/dL (3.5-5.7); Albumin/Globulin Ratio 1.5 (1.1-2.2); Alkaline Phosphatase 71 Units/L (34-104); Aspartate Amino Transferase 15 Units/L (13-39); BUN/Creatinine Ratio 22 (6-26); Bilirubin,Total 0.4 mg/dL (0.3-1.0); Blood Urea Nitrogen 18 mg/dL (8-23); Calcium 9.3 mg/dL (8.6-10.3); Carbon Dioxide 27 mEq/L (23-29); Chloride 106 mEq/L (98-107); Globulin 2.7 g/dL (2.4-3.5); Glucose 100 mg/dL (70-105); Osmolality,Calculated 294 (280-300); Potassium 3.7 mEq/L (3.5-5.1); Sodium 141 mEq/L (136-145); Total Protein 6.8 g/dL (6.4-8.9); eGFR For African Americans > 60 (> 60); eGFR For Non-African Americans > 60 (> 60)
[2020-05-02] MEDS: Bumetanide 1 MG TABLET PO SCH (08:25)
[2020-05-02] MEDS ORDERED: Aspirin Enteric Coated 81 MG Tablet PO SCH (09:00)
[2020-05-02] MEDS ORDERED: amLODIPine 5 MG TABLET PO SCH (09:00)
[2020-05-02 11:29] VITALS: BP 107/64
== END 2020-05-02 14:37 | disposition home or self-care (01) ==
LOC: EMEROOARM 12:54 → 3BNU 12:54
PROVIDERS: ADMIT Internal Medicine; ATTEND Internal Medicine